=== PATIENT | male | born 1960 | race Caucasian/White ===

== ENCOUNTER 2024-01-11 08:32 | Emergency (ER) | payer BC ==
[~2024-01-11] VITALS: Ht 170.1 cm; Wt 81.6 kg
[2024-01-11] MEDS ORDERED: Lidocaine Hydrochloride 15 ML UDC PO STA (08:49)
[2024-01-11] MEDS ORDERED: MG-AL HYDROXIDE/SIMETICONE 30 ML UDC PO STA (08:49)
[2024-01-11] MEDS ORDERED: Dicyclomine Hydrochloride 20 MG/10 ML OSYR PO STA (08:49)
[2024-01-11] MEDS ORDERED: SODIUM CHLORIDE 0.9% 1,000 ML IV ONE (08:50)
[2024-01-11 09:01] LABS: BASO # 0.1 10*3/uL (0.0-0.1); BASO % 1.1 % (0.0-1.0); EOS # 0.2 10*3/uL (0.0-0.4); EOS % 1.8 % (1.0-4.0); HEMATOCRIT 47.4 % (42.0-52.0); LYMPH # 1.9 10*3/uL (1.3-4.4); LYMPH % 16.7 % (27.0-41.0); MEAN CELL VOLUME 94.4 fl (80.0-94.0); MEAN CORPUSCULAR HGB 31.9 pg (27.0-31.0); MEAN CORPUSCULAR HGB CONC 33.8 g/dl (33.0-37.0); MEAN PLATELET VOLUME 9.8 fl (9.6-12.3); MONO # 1.3 10*3/uL (0.1-1.0); MONO % 11.3 % (3.0-9.0); NEUT # 7.8 10*3/uL (2.3-7.9); NEUT % 68.5 % (47.0-73.0); PLATELET COUNT AUTOMATED 294 10*3/uL (130-400); RED BLOOD COUNT 5.02 10*6/uL (4.50-5.90); RED CELL DISTRI WIDTH 12.7 % (0-14.5); WHITE BLOOD COUNT 11.4 10*3/uL (4.8-10.8)
[2024-01-11 09:10] LABS: ACT PARTIAL THROMBO TIME 35.3 SECONDS (20.0-32.1)
[2024-01-11 09:24] LABS: ALKALINE PHOSPHATASE 93 U/L (46-116); BUN 10 mg/dl (9-23); CHLORIDE 105 mmol/L (98-107); POTASSIUM 4.2 mmol/L (3.4-5.1); SGPT/ALT 19 U/L (5-49); TOTAL PROTEIN 7.1 gm/dL (6.0-8.0)
[2024-01-11] MEDS ORDERED: ASPIRIN, CHEWABLE 81 MG TAB PO ONE (09:35)
[2024-01-11] MEDS ORDERED: HEPARIN SODIUM 25,000 UNITS/250 ML BAG IV SCH (09:35)
[2024-01-11] MEDS ORDERED: Metoprolol Tartrate 25 MG TAB PO SCH (09:35)
[2024-01-11] MEDS ORDERED: TICAGRELOR 90 MG TABLET PO ONE (09:40)
[2024-01-11] MEDS ORDERED: ATORVASTATIN CALCIUM 80 MG TAB PO ONE (09:40)
== END 2024-01-11 11:30 | disposition short-term general hospital (02) ==
LOC: ED 08:32
PROVIDERS: Internal Medicine
DX: I21.3 ST elevation (STEMI) myocardial infarction of unspecified site (principal)

== ENCOUNTER → 2024-05-04 | Outpatient (CLI) | payer BC | END | disposition home or self-care (01) | LOC: CARD 08:37 | PROVIDERS: ATTEND Internal Medicine Cardiovascular Disease | DX: I51.7 Cardiomegaly (principal); I51.89 Other ill-defined heart diseases; I42.9 Cardiomyopathy, unspecified ==

== ENCOUNTER → 2024-12-20 | Outpatient (CLI) | payer BC | END | disposition home or self-care (01) | LOC: CARD 11:12 | PROVIDERS: ATTEND Internal Medicine Cardiovascular Disease | DX: R06.09 Other forms of dyspnea (principal); I25.2 Old myocardial infarction; I10 Essential (primary) hypertension ==